=== PATIENT | female | born 1940 | race Two or more races ===

== ENCOUNTER 2022-06-25 00:16 | Inpatient (IN) | payer MEDICARE, OTHER ==
[~2022-06-25] VITALS: Ht 157.5 cm; Wt 93.3 kg
[2022-06-25 00:43] LABS: Basophils # (auto) 0.2 10 ^3/uL (0-0.2); Basophils % (auto) 1.8 % (0.0-2.0); Eosinophils # (auto) 0.5 10 ^3/uL (0-0.8); Eosinophils % (auto) 4.6 % (0.0-7.0); Hematocrit 37.1 % (36.0-46.0); Hemoglobin 12.2 g/dL (12.2-16.2); Lymphocytes # (auto) 2.6 10 ^3/uL (0.4-5.4); Lymphocytes % (auto) 25.3 % (10.0-50.0); Mean Corpuscular Hemoglobin 30.1 pg (28.0-32.0); Mean Corpuscular Hgb Conc. 32.8 g/dL (32.0-36.0); Mean Corpuscular Volume 91.7 fL (80.0-100.0); Monocytes # (auto) 1.1 10 ^3/uL (0-1.3); Monocytes % (auto) 10.3 % (0.0-12.0); Neutrophils # (auto) 5.9 10 ^3/uL (1.6-8.6); Nucleated Red Blood Cells % 0.1 %; Red Blood Cells 4.04 10^6/uL (4.0-5.20); Red Cell Distribution Width 15.3 % (11.8-14.3); White Blood Cell 10.2 10^3/uL (4.4-10.8)
[2022-06-25] MEDS ORDERED: MORPHINE SULFATE 4 MG/ML SYR/VIAL IV ONE (00:45)
[2022-06-25] MEDS ORDERED: ONDANSETRON HCL 4 MG/2 ML VIAL IV ONE (00:45)
[2022-06-25 00:55] LABS: Urine Bacteria FEW /hpf (None Seen); Urine Blood Negative /uL (Negative); Urine Specific Gravity 1.012 (1.001-1.035); Urine WBC 22 /hpf (0 - 5)
[2022-06-25 00:58] LABS: INR 0.97 (0.9-1.15); Partial Thromboplastin Time 24.9 sec (24.6-33.4)
[2022-06-25 01:01] LABS: Albumin 3.3 g/dL (3.4-5.0); BUN/Creatinine Ratio 16.7; Calcium 9.2 mg/dL (8.5-10.1); Magnesium 2.3 mg/dL (1.6-2.6); Potassium 3.7 mmol/L (3.5-5.1)
[2022-06-25 01:04] LABS: Bilirubin, Total 0.2 mg/dL (0.2-1.0); Total Protein 7.2 g/dL (6.4-8.2)
[2022-06-25] MEDS ORDERED: IOHEXOL 350 MG/ML 100ML IJ ONE (01:16)
[2022-06-25] MEDS ORDERED: ACETAMINOPHEN 325 MG TAB PO PRN (05:45)
[2022-06-25] MEDS ORDERED: NITROGLYCERIN 0.4 MG SL TAB SL PRN (05:45)
[2022-06-25] MEDS ORDERED: ONDANSETRON HCL 4 MG/2 ML VIAL IV PRN (05:45)
[2022-06-25] MEDS ORDERED: MORPHINE SULFATE INJ 2 MG/ml SYRG IV PRN (05:45)
[2022-06-25] MEDS: PANTOPRAZOLE 40 MG TAB PO SCH (10:43)
[2022-06-25] MEDS: ENOXAPARIN SOD 40 MG/0.4 ML SYRINGE SC SCH (10:43)
[2022-06-25] MEDS ORDERED: CLOPIDOGREL BISULFATE 75 MG TAB PO ONE (12:00)
[2022-06-25 12:31] LABS: Cholesterol 115 mg/dL (< 200); HDL Cholesterol 48 mg/dL (40-59); LDL Cholesterol 59 mg/dL (< 100); Triglycerides 64 mg/dL (< 150)
[2022-06-25 16:40] VITALS: BP 120/43
[2022-06-25] MEDS ORDERED: cefTRIAXone 1GM/50ML D5W 50 ML IV ONE (18:00)
[2022-06-25 19:06] LABS: Folate (Folic Acid) 10.32 ng/mL (5.38-24)
[2022-06-25 22:00] VITALS: BP 121/47
[2022-06-25] MEDS ORDERED: ATORVASTATIN 20 MG TAB PO SCH (22:00)
[2022-06-25] MEDS: ATORVASTATIN 20 MG TAB PO SCH (22:00)
[2022-06-26 05:00] VITALS: BP 121/48
[2022-06-26 06:35] LABS: BUN/Creatinine Ratio 18.1; Calcium 9.2 mg/dL (8.5-10.1); Potassium 4.1 mmol/L (3.5-5.1)
[2022-06-26] MEDS ORDERED: ADENOSINE 78 MG in GIVE UN-DILUTED 0 ML IV ONE (07:45)
[2022-06-26 08:00] VITALS: BP 128/48
[2022-06-26] MEDS ORDERED: ERGOCALCIFEROL 50,000 UNIT(1.25MG) CAP PO SCH ×2 (08:00→14:45)
[2022-06-26 09:00] VITALS: BP 128/45
[2022-06-26] MEDS ORDERED: CLOP75TA28 PO (09:46)
[2022-06-26] MEDS ORDERED: ATOR40TA52 PO (09:46)
[2022-06-26] MEDS: CLOPIDOGREL BISULFATE 75 MG TAB PO SCH (10:14)
[2022-06-26] MEDS: PANTOPRAZOLE 40 MG TAB PO SCH (10:14)
[2022-06-26] MEDS: ENOXAPARIN SOD 40 MG/0.4 ML SYRINGE SC SCH (10:14)
[2022-06-26] MEDS: cefTRIAXone 1GM/50ML D5W 50 ML IV SCH ×2 (10:15→12:41)
[2022-06-26] MEDS ORDERED: ASPirin 81 mg TAB PO ONE (12:15)
[2022-06-26 12:45] VITALS: BP 141/42
[2022-06-26] MEDS ORDERED: LORazepam 2MG/ML-1ML VIAL IV ONE (14:30)
[2022-06-26] MEDS ORDERED: CYANOCOBALAMIN (B-12) 1000 MCG/1 ML VIAL IM ONE (14:45)
[2022-06-26 16:09] VITALS: BP 121/43
[2022-06-26] MEDS: ATORVASTATIN 20 MG TAB PO SCH (21:31)
[2022-06-26 22:00] VITALS: BP 119/51
[2022-06-27 05:00] VITALS: BP 130/50
[2022-06-27] MEDS: CLOPIDOGREL BISULFATE 75 MG TAB PO SCH (08:52)
[2022-06-27] MEDS: cefTRIAXone 1GM/50ML D5W 50 ML IV SCH (08:52)
[2022-06-27] MEDS: PANTOPRAZOLE 40 MG TAB PO SCH (08:53)
[2022-06-27] MEDS: ENOXAPARIN SOD 40 MG/0.4 ML SYRINGE SC SCH (08:53)
[2022-06-27 09:21] VITALS: BP 138/64
[2022-06-27 12:37] VITALS: BP 130/55
[2022-06-27 16:05] VITALS: BP 135/53
[2022-06-27] MEDS: ATORVASTATIN 20 MG TAB PO SCH (21:49)
[2022-06-27 22:00] VITALS: BP 115/51
[2022-06-28 05:00] VITALS: BP 117/47
[2022-06-28 08:36] VITALS: BP 144/61
[2022-06-28] MEDS: CLOPIDOGREL BISULFATE 75 MG TAB PO SCH (10:40)
[2022-06-28] MEDS: PANTOPRAZOLE 40 MG TAB PO SCH (10:40)
[2022-06-28] MEDS: ENOXAPARIN SOD 40 MG/0.4 ML SYRINGE SC SCH (10:41)
[2022-06-28] MEDS: cefTRIAXone 1GM/50ML D5W 50 ML IV SCH (10:41)
[2022-06-28 12:30] VITALS: BP 128/58
[2022-06-28 16:34] VITALS: BP 115/54
[2022-06-28 20:00] VITALS: BP 106/41
[2022-06-28] MEDS: ATORVASTATIN 20 MG TAB PO SCH (21:52)
[2022-06-28 22:00] VITALS: BP 106/41
[2022-06-29] VITALS (8 sets, daily range): BP systolic 114–137; BP diastolic 48–62
[2022-06-29 07:17] LABS: Basophils # (auto) 0.1 10 ^3/uL (0-0.2); Basophils % (auto) 1.5 % (0.0-2.0); Eosinophils # (auto) 0.5 10 ^3/uL (0-0.8); Eosinophils % (auto) 5.4 % (0.0-7.0); Hematocrit 34.8 % (36.0-46.0); Lymphocytes # (auto) 2.1 10 ^3/uL (0.4-5.4); Lymphocytes % (auto) 24.1 % (10.0-50.0); Mean Corpuscular Hgb Conc. 34.5 g/dL (32.0-36.0); Mean Corpuscular Volume 86.8 fL (80.0-100.0); Monocytes # (auto) 0.7 10 ^3/uL (0-1.3); Monocytes % (auto) 8.6 % (0.0-12.0); Neutrophils # (auto) 5.2 10 ^3/uL (1.6-8.6); Neutrophils % (auto) 60.4 % (37.0-80.0); Nucleated Red Blood Cells % 0.1 %; Red Blood Cells 4.01 10^6/uL (4.0-5.20); White Blood Cell 8.6 10^3/uL (4.4-10.8)
[2022-06-29 07:32] LABS: Partial Thromboplastin Time 24.7 sec (24.6-33.4)
[2022-06-29 07:41] LABS: BUN/Creatinine Ratio 17.8; Calcium 9.4 mg/dL (8.5-10.1)
[2022-06-29] MEDS: cefTRIAXone 1GM/50ML D5W 50 ML IV SCH (10:00)
[2022-06-29] MEDS: CLOPIDOGREL BISULFATE 75 MG TAB PO SCH (10:00)
[2022-06-29] MEDS: ENOXAPARIN SOD 40 MG/0.4 ML SYRINGE SC SCH (10:00)
[2022-06-29] MEDS ORDERED: LIDOCAINE 2%HCL (LOCAL ANESTH.) INJ 10ml MDV ONE (13:33)
[2022-06-29] MEDS ORDERED: ANGIOMAX 250 MG VIAL IV ONE (13:41)
[2022-06-29] MEDS ORDERED: fentaNYL CITRATE 100 MCG/2 ML VL ONE (13:41)
[2022-06-29] MEDS ORDERED: SODIUM CHL 0.9% 0 ML ONE (13:41)
[2022-06-29] MEDS ORDERED: MIDAZOLAM HCL 2MG/2ML 2ml VIAL (1mg/ml) ONE (13:41)
[2022-06-29] MEDS ORDERED: HEPARIN SODIUM (PORCINE) 5000 UNITS/ML 1ML VIAL ONE (13:45)
[2022-06-29] MEDS ORDERED: VERAPAMIL 2.5MG/ML INJ 2ML VIAL IV ONE (13:45)
== END 2022-06-29 18:30 | disposition home or self-care (01) | DRG 286 ==
LOC: ER 00:16 → TELE 05:41 → TELE-EAST 16:29
PROVIDERS: ADMIT Nurse Practitioner; ATTEND Internal Medicine
PROC: 4A023N7 Measurement of Cardiac Sampling and Pressure, Left Heart, Percutaneous Approach (ICD-10-PCS; principal; 2022-06-29)
PROC: B2111ZZ Fluoroscopy of Multiple Coronary Arteries using Low Osmolar Contrast (ICD-10-PCS; 2022-06-29)
DX: R07.89 Other chest pain (principal); I50.31 Acute diastolic (congestive) heart failure; N39.0 Urinary tract infection, site not specified; E44.0 Moderate protein-calorie malnutrition; E66.01 Morbid (severe) obesity due to excess calories; Z20.822 Contact with and (suspected) exposure to COVID-19; E87.8 Other disorders of electrolyte and fluid balance, not elsewhere classified; I44.0 Atrioventricular block, first degree; I95.9 Hypotension, unspecified; E55.9 Vitamin D deficiency, unspecified; Z68.37 Body mass index [BMI] 37.0-37.9, adult
CPT/HCPCS: 36415; 71045; 71275; 73030; 78452; 80048; 80053; 80061; 81001; 82306; 82607; 82746; 83036; 83735; 83880; 84443; 84484; 85025; 85610; 85730; 86850; 86900; 86901; 87086; 87426; 93005; 93017; 93306; 93458; 96374; 96375; 99152; G0378; J0153; J0696; J2001; J2250; J2405